=== PATIENT | female | born 1960 | race African-American/Black ===

== ENCOUNTER 2018-03-04 10:40 | Emergency (ER) | payer BC ==
[2016-06-18 13:12] VITALS: BMI 27.8
[~2018-03-04 10:40] MED LIST: ALPHAGAN P15 ML; BETAGAN 0.5% OPH5 ML LEFT EYE; CELLCEPT500 MG; DIOVAN320 MG; DIOVAN320 MG PO; FUROSEMIDE20 MG; FUROSEMIDE20 MG PO; NEPTAZANE25 MG PO; NEPTAZANE50 MG PO; NORVASC5 MG; NORVASC5 MG PO; NOVOLOG100 U/M1 SC; PROLENSA 0.07% LEFT EYE; TRUSOPT 2 % OPT10 ML; VALTREX1000 MG PO
[2018-03-04 12:00] LABS: APPEARANCE CLEAR (CLEAR); BACTERIA FEW /hpf (NONE SEEN); BILIRUBIN NEGATIVE (NEGATIVE); COLOR YELLOW (YELLOW); EPITHELIAL CELLS 0-5 /hpf (0-5); GLUCOSE 1000 mg/dL (NEGATIVE); KETONE SMALL mg/dL (NEGATIVE); MUCUS <1+ /lpf (NONE SEEN); NITRITE NEGATIVE (NEGATIVE); PROTEIN 1+ mg/dL (NEGATIVE); RED CELLS - URINE OCC /hpf (0-5); SPECIFIC GRAVITY 1.015 (1.005-1.020); UROBILINOGEN NORMAL (NORMAL); WHITE CELLS - URINE RARE /hpf (0-5)
[2018-03-04 12:33] LABS: ALBUMIN 3.4 g/dL (3.4-5.0); ANION GAP 18.2 mmol/L (8-16); BILIRUBIN - TOTAL 0.43 mg/dL (0.2-1.3); CALCIUM 8.9 mg/dL (8.5-10.1); CARBON DIOXIDE 22.5 mmol/L (21.0-32.0); CREATININE - SERUM 0.9 mg/dL (0.6-1.3); MAGNESIUM - SERUM 2.1 mg/dL (1.8-2.4); POTASSIUM - SERUM 3.7 mmol/L (3.5-5.1)
[2018-03-04 12:49] LABS: BASOPHILS 0.1 % (0-2); EOSINOPHILS 0.1 % (0-7); HEMATOCRIT 38.7 % (36.0-48.0); IMMATURE GRANULOCYTES 0.3 % (0-5); MCH 29.3 pg (26.0-34.0); MCHC 33.6 g/dL (31.0-37.0); MCV 87.4 fL (80.0-100.0); MEAN PLATELET VOLUME 11.6 fL (7.4-10.4); MONOCYTES 2.3 % (2-11); NEUTROPHILS 87.2 % (40-80); PLATELET COUNT 252 10x3/uL (130-400); RBC 4.43 10x6/uL (4.00-5.40); WBC 6.9 10x3/uL (4.8-10.8)
== END 2018-03-04 15:17 | disposition home or self-care (01) ==
LOC: D.ER 10:40
PROVIDERS: Emergency Medicine
DX: G40.909 Epilepsy, unspecified, not intractable, without status epilepticus (principal); E11.9 Type 2 diabetes mellitus without complications; Z79.4 Long term (current) use of insulin